=== PATIENT | male | born 1985 | race American Indian/Alaskan Native ===

== ENCOUNTER 2018-08-07 22:23 | Inpatient (IN) | payer BC, OTHER ==
[2018-08-07] MEDS ORDERED: Sodium Chloride 0.9% 1,000 ML IV ONE (22:32)
[2018-08-07] MEDS ORDERED: Ondansetron 4 MG/2 ML SDV IVPUSH ONE (22:32)
[2018-08-07] MEDS ORDERED: Ketorolac 30 MG/ML SDV IVPUSH ONE (22:33)
--- NOTE | 2018-08-07 22:45 | EDM.PDOC ---
ED HPI GENERAL MEDICAL PROBLEM - General Chief Complaint: Abdominal Pain Stated Complaint: ABD PAIN Time Seen by Provider: 08/07/18 22:43 - History of Present Illness INITIAL COMMENTS - FREE TEXT/NARRATIVE: HISTORY AND PHYSICAL: History of present illness: Patient is a 33-year-old white male history of diabetes presents with concern of right-sided abdominal flank pain started acutely this afternoon he has associated nausea no vomiting denies fever chills trauma or other concern. Review of systems: As per history of present illness and below otherwise all systems reviewed and negative. Past medical history: As per history of present illness and as reviewed below otherwise noncontributory. Surgical history: As per history of present illness and as reviewed below otherwise noncontributory. Social history: No reported history of drug or alcohol abuse. Family history: As per history of present illness and as reviewed below otherwise noncontributory. Physical exam: HEENT: Atraumatic, normocephalic, pupils reactive, negative for conjunctival pallor or scleral icterus, mucous membranes moist, throat clear, neck supple, nontender, trachea midline. Lungs: Clear to auscultation, breath sounds equal bilaterally, chest nontender. Heart: S1S2, regular, negative for clicks, rubs, or JVD. Abdomen: Soft, nondistended, mild right-sided tenderness to deep palpation no rebound no guarding. Negative for masses or hepatosplenomegaly. Negative for costovertebral tenderness. Pelvis: Stable nontender. Genitourinary: Deferred. Rectal: Deferred. Extremities: Atraumatic, negative for cords or calf pain. Neurovascular unremarkable. Neuro: Awake, alert, oriented. Cranial nerves II through XII unremarkable. Cerebellum unremarkable. Motor and sensory unremarkable throughout. Exam nonfocal. Diagnostics: CBC CMP UA lipase CT abdomen and pelvis Therapeutics: Saline 1 L bolus Toradol 30 mg IV Zofran 4 mg IV Impression: #1 right-sided abdominal pain #2 history of diabetes Definitive disposition and diagnosis as appropriate pending reevaluation and review of above. RLQ abdomen Pain Score (Numeric/FACES): 7 - Related Data Allergies Allergy/AdvReac Type Severity Reaction Status Date / Time No Known Allergies Allergy Verified 08/07/18 22:27 Home Meds: Home Meds Insulin Aspart [NovoLOG] 21 unit SUBCUT DAILY 08/07/18 [History] Past Medical History - Past Health History Medical/Surgical History: Denies Medical/Surgical History Endocrine/Metabolic History: Reports: Diabetes, Type I Social & Family History - Family History Family Medical History: Noncontributory - Tobacco Use Smoking Status *Q: Never Smoker - Recreational Drug Use Recreational Drug Use: No ED ROS GENERAL - Review of Systems Review Of Systems: ROS reveals no pertinent complaints other than HPI. ED EXAM, GENERAL - Physical Exam Exam: See Below (See dictation) Course - Vital Signs Last Recorded V/S: Last Vital Signs Temp 36.9 C 08/08/18 03:00 Pulse 85 08/08/18 00:11 Resp 26 H 08/08/18 07:00 BP 154/88 H 08/08/18 07:00 Pulse Ox 96 08/08/18 07:00 - Orders/Labs/Meds Orders: Medication Orders Enoxaparin Sodium (Lovenox) 40 mg SUBCUT Q24H ROLO Last Admin: 08/08/18 05:23 Dose: 40 mg Folic Acid (Folic Acid) 1 mg PO DAILY ROLO Hydromorphone HCl (Dilaudid) 0.5 mg IVPUSH Q2H PRN PRN Reason: Pain Insulin Human Regular 100 unit (/ Sodium Chloride) 100 mls @ 1.5 mls/hr IV TITRATE ROLO; Protocol Last Titration: 08/08/18 06:56 Dose: 2 unit/hr, 2 mls/hr Titration: 08/08/18 06:08 Dose: 2.5 unit/hr, 2.5 mls/hr Admin: 08/08/18 04:27 Dose: 1.5 unit/hr, 1.5 mls/hr Potassium Chloride/Dextrose/Sod Cl (D5 1/2 Ns W/ 20 Meq/L Kcl) 1,000 mls @ 150 mls/hr IV ASDIRECTED ROLO Last Admin: 08/08/18 05:00 Dose: 150 mls/hr Multivitamins/Minerals 10 ml/ (Sodium Chloride) 1,010 mls @ 250 mls/hr IV DAILY ROLO Magnesium Sulfate 2 gm/ Premix 50 mls @ 50 mls/hr IV ONETIME ONE Stop: 08/08/18 08:37 Potassium Chloride 20 meq/ (Premix) 50 mls @ 25 mls/hr IV ONETIME ONE Stop: 08/08/18 13:29 Thiamine HCl (Vitamin B-1) 100 mg PO DAILY ROLO Labs: Laboratory Tests 08/07/18 08/07/18 08/07/18 Range/Units 22:35 22:42 22:42 WBC 14.35 H (4.0-11.0) K/uL RBC 4.56 (4.50-5.90) M/uL Hgb 19.7 H (13.0-17.0) g/dL Hct 43.2 (38.0-50.0) % MCV 94.7 (80.0-98.0) fL MCH 43.2 H (27.0-32.0) pg MCHC 45.6 H (31.0-37.0) g/dL RDW Std Deviation 45.9 (28.0-62.0) fl RDW Coeff of Raymond 13 (11.0-15.0) % Plt Count 185 (150-400) K/uL MPV 10.80 (7.40-12.00) fL Add Manual Diff YES Neutrophils % (Manual) 75 (48.0-80.0) % Band Neutrophils % 2 % Lymphocytes % (Manual) 13 L (16.0-40.0) % Monocytes % (Manual) 10 (0.0-15.0) % Nucleated RBC % 0.0 /100WBC Absolute Seg Neuts 10.8 H (1.4-5.7) Band Neutrophils # 0.3 Lymphocytes # (Manual) 1.9 (0.6-2.4) Monocytes # (Manual) 1.4 H (0.0-0.8) Nucleated RBCs # 0 K/uL ABG pH (7.35-7.45) ABG pCO2 (35-45) mmHG ABG pO2 (75-100) mmHG ABG HCO3 (22-26) mEq/L ABG Total CO2 ABG Base Excess (-2.0-2.0) Sodium 131 L (136-148) mmol/L Potassium 3.6 (3.5-5.1) mmol/L Chloride 94 L (98-107) mmol/L Carbon Dioxide 10.0 L (21.0-32.0) mmol/L BUN 9 (7.0-18.0) mg/dL Creatinine < 0.2 L (0.8-1.3) mg/dL Est Cr Clr Drug Dosing 321.95 mL/min Estimated GFR (MDRD) > 60.0 ml/min Glucose 559 H* (74-106) mg/dL POC Glucose (60-110) mg/dL Calcium 6.7 L (8.5-10.1) mg/dL Total Bilirubin 3.2 H (0.2-1.0) mg/dL AST (15-37) IU/L ALT (14-63) IU/L Alkaline Phosphatase 84 (46-116) U/L Total Protein 7.8 (6.4-8.2) g/dL Albumin 3.8 (3.4-5.0) g/dL Globulin 4.0 (2.6-4.0) g/dL Albumin/Globulin Ratio 1.0 (0.9-1.6) Lipase 2520 H (73-393) U/L Urine Color YELLOW Urine Appearance HAZY Urine pH 5.5 (5.0-8.0) Ur Specific [place] >= 1.030 (1.001-1.035) Urine Protein 100 H (NEGATIVE) mg/dL Urine Glucose (UA) 500 H (NEGATIVE) mg/dL Urine Ketones >=80 (NEGATIVE) mg/dL Urine Occult Blood SMALL H (NEGATIVE) Urine Nitrite NEGATIVE (NEGATIVE) Urine Bilirubin SMALL H (NEGATIVE) Urine Urobilinogen 0.2 (<2.0) EU/dL Ur Leukocyte Esterase NEGATIVE (NEGATIVE) Urine RBC 0-2 (0-2/HPF) Urine WBC 0-1 (0-5/HPF) Ur Epithelial Cells RARE (NONE-FEW) Urine Bacteria FEW (NEGATIVE) Urine Mucus LIGHT (NONE-MOD) 08/08/18 08/08/18 Range/Units 01:36 01:43 WBC (4.0-11.0) K/uL RBC (4.50-5.90) M/uL Hgb (13.0-17.0) g/dL Hct (38.0-50.0) % MCV (80.0-98.0) fL MCH (27.0-32.0) pg MCHC (31.0-37.0) g/dL RDW Std Deviation (28.0-62.0) fl RDW Coeff of Raymond (11.0-15.0) % Plt Count (150-400) K/uL MPV (7.40-12.00) fL Add Manual Diff Neutrophils % (Manual) (48.0-80.0) % Band Neutrophils % % Lymphocytes % (Manual) (16.0-40.0) % Monocytes % (Manual) (0.0-15.0) % Nucleated RBC % /100WBC Absolute Seg Neuts (1.4-5.7) Band Neutrophils # Lymphocytes # (Manual) (0.6-2.4) Monocytes # (Manual) (0.0-0.8) Nucleated RBCs # K/uL ABG pH 7.124 L* (7.35-7.45) ABG pCO2 15 L (35-45) mmHG ABG pO2 121 H (75-100) mmHG ABG HCO3 5 L (22-26) mEq/L ABG Total CO2 ABG Base Excess (-2.0-2.0) Sodium (136-148) mmol/L Potassium (3.5-5.1) mmol/L Chloride (98-107) mmol/L Carbon Dioxide (21.0-32.0) mmol/L BUN (7.0-18.0) mg/dL Creatinine (0.8-1.3) mg/dL Est Cr Clr Drug Dosing mL/min Estimated GFR (MDRD) ml/min Glucose (74-106) mg/dL POC Glucose 205 H (60-110) mg/dL Calcium (8.5-10.1) mg/dL Total Bilirubin (0.2-1.0) mg/dL AST (15-37) IU/L ALT (14-63) IU/L Alkaline Phosphatase (46-116) U/L Total Protein (6.4-8.2) g/dL Albumin (3.4-5.0) g/dL Globulin (2.6-4.0) g/dL Albumin/Globulin Ratio (0.9-1.6) Lipase (73-393) U/L Urine Color Urine Appearance Urine pH (5.0-8.0) Ur Specific [place] (1.001-1.035) Urine Protein (NEGATIVE) mg/dL Urine Glucose (UA) (NEGATIVE) mg/dL Urine Ketones (NEGATIVE) mg/dL Urine Occult Blood (NEGATIVE) Urine Nitrite (NEGATIVE) Urine Bilirubin (NEGATIVE) Urine Urobilinogen (<2.0) EU/dL Ur Leukocyte Esterase (NEGATIVE) Urine RBC (0-2/HPF) Urine WBC (0-5/HPF) Ur Epithelial Cells (NONE-FEW) Urine Bacteria (NEGATIVE) Urine Mucus (NONE-MOD) Meds: Medications Generic Name Dose Route Start Last Admin Trade Name Bridget PRN Reason Stop Dose Admin Enoxaparin Sodium 40 mg 08/08/18 05:00 08/08/18 05:23 Lovenox SUBCUT 40 mg Q24H ROLO Administration Folic Acid 1 mg 08/08/18 09:00 Folic Acid PO DAILY ROLO Hydromorphone HCl 0.5 mg 08/08/18 07:38 Dilaudid IVPUSH Q2H PRN Pain Insulin Human Regular 100 unit 100 mls @ 1.5 mls/hr 08/08/18 04:15 08/08/18 06:56 / Sodium Chloride IV 2 unit/hr TITRATE ROLO 2 mls/hr Titration Protocol 1.5 UNIT/HR Potassium Chloride/Dextrose/Sod Cl 1,000 mls @ 150 mls/hr 08/08/18 04:15 05:00 D5 1/2 Ns W/ 20 Meq/L Kcl IV 150 mls/hr ASDIRECTED ROLO Administration Multivitamins/Minerals 10 ml/ 1,010 mls @ 250 mls/hr 08/08/18 09:00 Sodium Chloride IV DAILY ROLO Magnesium Sulfate 2 gm/ Premix 50 mls @ 50 mls/hr 08/08/18 07:38 IV 08/08/18 08:37 ONETIME ONE Potassium Chloride 20 meq/ 50 mls @ 25 mls/hr 08/08/18 11:30 Premix IV 08/08/18 13:29 ONETIME ONE Thiamine HCl 100 mg 08/08/18 09:00 Vitamin B-1 PO DAILY ROLO Discontinued Medications Generic Name Dose Route Start Last Admin Trade Name Bridget PRN Reason Stop Dose Admin Hydromorphone HCl 1 mg 08/08/18 00:48 08/08/18 00:58 Dilaudid IVPUSH 08/08/18 00:49 1 mg ONETIME ONE Administration Hydromorphone HCl 0.5 mg 08/08/18 04:16 08/08/18 04:47 Dilaudid IVPUSH 0.5 mg Q4H PRN Administration Pain Sodium Chloride 1,000 mls @ 999 mls/hr 08/07/18 22:32 08/07/18 22:47 Normal Saline IV 08/07/18 23:32 999 mls/hr .Bolus ONE Administration Sodium Chloride 1,000 mls @ 999 mls/hr 08/08/18 01:03 08/08/18 01:05 Normal Saline IV 08/08/18 02:03 999 mls/hr .Bolus ONE Administration Insulin Human Regular 100 unit 100 mls @ 7 mls/hr 08/08/18 02:15 08/08/18 03: 58 / Sodium Chloride IV 1.5 unit/hr TITRATE ROLO 1.5 mls/hr Titration Protocol 7 UNIT/HR Thiamine HCl 100 mg/ Sodium 101 mls @ 202 mls/hr 08/08/18 04:18 08/08/18 04: 57 Chloride IV 08/08/18 04:19 202 mls/hr ONETIME ONE Administration Sodium Chloride 1,000 mls @ 125 mls/hr 08/08/18 03:05 08/08/18 03:08 Normal Saline IV 125 mls/hr ASDIRECTED ROLO Administration Potassium Phosphate 30 mmole/ 510 mls @ 127.5 mls/hr 08/08/18 07:39 Sodium Chloride IV 08/08/18 07:40 NOW ONE Insulin Human Regular 10 unit 08/08/18 00:49 08/08/18 00:55 Novolin R SUBCUT 08/08/18 00:50 10 unit NOW STA Administration Protocol Insulin Human Regular 10 unit 08/08/18 01:06 08/08/18 01:10 Novolin R IVPUSH 08/08/18 01:07 10 unit ONETIME ONE Administration Protocol Ketorolac Tromethamine 30 mg 08/07/18 22:33 08/07/18 22:48 Toradol IVPUSH 08/07/18 22:34 30 mg ONETIME ONE Administration Multivitamins/Minerals 10 ml 08/08/18 09:00 Infuvite Adult IV DAILY ROLO Ondansetron HCl 4 mg 08/07/18 22:32 08/07/18 22:47 Zofran IVPUSH 08/07/18 22:33 4 mg ONETIME ONE Administration Departure - Departure Time of Disposition: 07:49 Disposition: Admitted As Inpatient 68 Condition: Good Clinical Impression: Abdominal pain Pancreatitis Qualifiers: Chronicity: acute Pancreatitis type: unspecified pancreatitis type Acute pancreatitis complication: no infection or necrosis Qualified Code(s): K85.90 - Acute pancreatitis without necrosis or infection, unspecified Diabetic ketoacidosis Qualifiers: Diabetes mellitus type: type 1 Diabetes mellitus complication detail: without coma Qualified Code(s): E10.10 - Type 1 diabetes mellitus with ketoacidosis without coma - Discharge Information
--- NOTE | 2018-08-07 23:27 | CT ---
HISTORY: Right lower quadrant abdominal pain. TECHNIQUE: Noncontrast CT abdomen and pelvis. COMPARISON: No prior. FINDINGS: Fatty infiltration of the liver with areas of sparing. Gallbladder does not appear overly distended. The spleen and adrenal glands are normal. There is peripancreatic inflammatory change associated with the head and uncinate process of pancreas likely indicating changes of pancreatitis. No well-defined pseudocyst. No hydronephrosis. No obstructive urinary calculus. Urinary bladder is nondistended. - No small bowel obstruction. No appendicitis. No diverticulitis. Mild atherosclerotic changes of the abdominal aorta without aneurysm. No technically enlarged lymph nodes. - No acute bony abnormality. - Minor atelectasis within the lung bases. IMPRESSION: 1. Peripancreatic inflammatory changes likely indicating changes of pancreatitis. Correlation could be made with pancreatic enzymes. 2. Fatty infiltration of the liver. 3. No bowel obstruction, appendicitis or diverticulitis. Dictated by Carson Telles MD @ 08/07/2018 11:25:20 PM Please note that all CT scans at this facility use dose modulation, iterative reconstruction, and/or weight-based dosing when appropriate to reduce radiation dose to as low as reasonably achievable. Dictated by: Carson Telles MD @ 08/07/2018 23:25:30 (Electronically Signed)
[2018-08-08 00:01] LABS: CHLORIDE,CL 94 mmol/L (98-107)
[2018-08-08 00:46] LABS: SODIUM,NA 131 mmol/L (136-148)
[2018-08-08] MEDS ORDERED: HYDROmorphone 1 MG/ML Syringe IVPUSH ONE (00:48)
[2018-08-08] MEDS ORDERED: Insulin Regular, Human 100 Units/ML 10 ML Vial SUBCUT STA (00:49)
[2018-08-08] MEDS ORDERED: Sodium Chloride 0.9% 1,000 ML IV ONE ×2 (01:03→13:15)
[2018-08-08] MEDS ORDERED: Insulin Regular, Human 100 Units/ML 10 ML Vial IVPUSH ONE (01:06)
[2018-08-08] MEDS ORDERED: Sodium Chloride 0.9% 1,000 ML IV SCH (03:05)
[2018-08-08] MEDS ORDERED: D5 1/2 NS w/ 20 mEq/L KCl 1,000 ML IV SCH (04:15)
[2018-08-08] MEDS ORDERED: HYDROmorphone 2 MG/ML Syringe IVPUSH PRN (04:16)
[2018-08-08] MEDS ORDERED: Thiamine 100 MG in Sodium Chloride 0.9% 100 ML IV ONE (04:18)
--- NOTE | 2018-08-08 04:52 | PCM.HP ---
H&P History of Present Illness - General Date of Service: 08/08/18 Admit Problem/Dx: Admission Diagnosis/Problem Admission Diagnosis/Problem Pancreatitis Source of Information: Patient History Limitations: Reports: No Limitations - History of Present Illness Initial Comments - Free Text/Narative: The patient is a 33-year-old gentleman who presented to the emergency department out of concern with right-sided abdominal and flank pain which started earlier before visit. Patient is an insulin-dependent diabetic and he was diagnosed 3 years ago. The patient has not previously had any problems with diabetic ketoacidosis. The patient has described his pain is located in the middle of his abdomen and radiating to his back. He describes it as sharp. The patient has described nausea without vomiting. The patient has had no specific aggravating or relieving factors. Patient says that he neglected to take his insulin for the past 3 days. Onset of Symptoms: Reports: Sudden Duration of Symptoms: Reports: Hour(s):, Getting Worse Location: Reports: Abdomen Quality: Reports: Ache, Stabbing Severity: Moderate Improves with: Reports: Medication, Rest Worsens with: Reports: None Associated Symptoms: Reports: Loss of Appetite, Nausea/Vomiting RLQ abdomen Pain Score (Numeric/FACES): 2 - Related Data Allergies/Adverse Reactions: Allergies Allergy/AdvReac Type Severity Reaction Status Date / Time No Known Allergies Allergy Verified 08/07/18 22:27 Home Medications: Home Meds Insulin Aspart [NovoLOG] 21 unit SUBCUT DAILY 08/07/18 [History] Past Medical History - Past Health History Medical/Surgical History: Denies Medical/Surgical History HEENT History: Reports: None Cardiovascular History: Reports: None Respiratory History: Reports: None Gastrointestinal History: Reports: None Genitourinary History: Reports: None Musculoskeletal History: Reports: None Neurological History: Reports: None Psychiatric History: Reports: None Endocrine/Metabolic History: Reports: Diabetes, Type I Hematologic History: Reports: None Immunologic History: Reports: None Oncologic (Cancer) History: Reports: None Dermatologic History: Reports: None - Infectious Disease History Infectious Disease History: Reports: None Social & Family History - Family History Family Medical History: Noncontributory - Tobacco Use Smoking Status *Q: Former Smoker Years of Tobacco use: 12 Packs/Tins Daily: 1 Used Tobacco, but Quit: Yes Month/Year Tobacco Last Used: 2014 Second Hand Smoke Exposure: Yes - Alcohol Use Days Per Week of Alcohol Use: 7 Number of Drinks Per Day: 6 Total Drinks Per Week: 42 Date of Last Drink: 08/06/18 - Recreational Drug Use Recreational Drug Use: No - Living Situation & Occupation Occupation: Employed H&P Review of Systems - Review of Systems: Review Of Systems: See Below General: Reports: Decreased Appetite HEENT: Reports: No Symptoms Pulmonary: Reports: No Symptoms Cardiovascular: Reports: No Symptoms Gastrointestinal: Reports: Abdominal Pain, Constipation, Nausea. Denies: Vomiting Genitourinary: Reports: No Symptoms Musculoskeletal: Reports: No Symptoms Skin: Reports: No Symptoms Psychiatric: Reports: No Symptoms Neurological: Reports: No Symptoms Hematologic/Lymphatic: Reports: No Symptoms Immunologic: Reports: No Symptoms Exam - Exam Exam: See Below - Vital Signs Vital Signs: Last Vital Signs Temp 36.9 C 08/08/18 03:00 Pulse 85 08/08/18 00:11 Resp 24 H 08/08/18 04:00 BP 143/78 H 08/08/18 04:00 Pulse Ox 95 08/08/18 04:00 Weight: 78.018 kg - Exam Quality Assessment: No: Supplemental Oxygen General: Alert, Oriented, Cooperative, Mild Distress HEENT: Conjunctiva Clear, EACs Clear, EOMI, Hearing Intact, Nares Patent, Pupils Equal, PERRLA. No: Mucosa Moist & [place] (Dry) Neck: Supple, Trachea Midline. No: Thyromegaly Lungs: Clear to Auscultation, Normal Respiratory Effort Cardiovascular: Regular Rhythm, Normal S1, Normal S2, Tachycardia (112 on monitor) GI/Abdominal Exam: Normal Bowel Sounds, Soft, No Distention, No Mass, Tender ( Supraumbilical area). No: Guarding, Rigid, Rebound Back Exam: Normal Inspection, Full Range of Motion Extremities: Normal Inspection, No Pedal Edema Skin: Warm, Dry, Intact Neurological: Cranial Nerves Intact Neuro Extensive - Mental Status: Alert, Oriented x3 Psychiatric: Alert, Normal Affect, Normal Mood - Patient Data Lab Results Last 24 hrs: Laboratory Results - last 24 hr 08/07/18 08/07/18 08/07/18 Range/Units 22:35 22:42 22:42 WBC 14.35 H (4.0-11.0) K/uL RBC 4.56 (4.50-5.90) M/uL Hgb 19.7 H (13.0-17.0) g/dL Hct 43.2 (38.0-50.0) % MCV 94.7 (80.0-98.0) fL MCH 43.2 H (27.0-32.0) pg MCHC 45.6 H (31.0-37.0) g/dL RDW Std Deviation 45.9 (28.0-62.0) fl RDW Coeff of Raymond 13 (11.0-15.0) % Plt Count 185 (150-400) K/uL MPV 10.80 (7.40-12.00) fL Add Manual Diff YES Neutrophils % (Manual) 75 (48.0-80.0) % Band Neutrophils % 2 % Lymphocytes % (Manual) 13 L (16.0-40.0) % Monocytes % (Manual) 10 (0.0-15.0) % Nucleated RBC % 0.0 /100WBC Absolute Seg Neuts 10.8 H (1.4-5.7) Band Neutrophils # 0.3 Lymphocytes # (Manual) 1.9 (0.6-2.4) Monocytes # (Manual) 1.4 H (0.0-0.8) Nucleated RBCs # 0 K/uL ABG pH (7.35-7.45) ABG pCO2 (35-45) mmHG ABG pO2 (75-100) mmHG ABG HCO3 (22-26) mEq/L ABG Total CO2 ABG Base Excess (-2.0-2.0) Sodium 131 L (136-148) mmol/L Potassium 3.6 (3.5-5.1) mmol/L Chloride 94 L (98-107) mmol/L Carbon Dioxide 10.0 L (21.0-32.0) mmol/L BUN 9 (7.0-18.0) mg/dL Creatinine < 0.2 L (0.8-1.3) mg/dL Est Cr Clr Drug Dosing 321.95 mL/min Estimated GFR (MDRD) > 60.0 ml/min Glucose 559 H* (74-106) mg/dL POC Glucose (60-110) mg/dL Calcium 6.7 L (8.5-10.1) mg/dL Total Bilirubin 3.2 H (0.2-1.0) mg/dL AST (15-37) IU/L ALT (14-63) IU/L Alkaline Phosphatase 84 (46-116) U/L Total Protein 7.8 (6.4-8.2) g/dL Albumin 3.8 (3.4-5.0) g/dL Globulin 4.0 (2.6-4.0) g/dL Albumin/Globulin Ratio 1.0 (0.9-1.6) Lipase 2520 H (73-393) U/L Urine Color YELLOW Urine Appearance HAZY Urine pH 5.5 (5.0-8.0) Ur Specific [place] >= 1.030 (1.001-1.035) Urine Protein 100 H (NEGATIVE) mg/dL Urine Glucose (UA) 500 H (NEGATIVE) mg/dL Urine Ketones >=80 (NEGATIVE) mg/dL Urine Occult Blood SMALL H (NEGATIVE) Urine Nitrite NEGATIVE (NEGATIVE) Urine Bilirubin SMALL H (NEGATIVE) Urine Urobilinogen 0.2 (<2.0) EU/dL Ur Leukocyte Esterase NEGATIVE (NEGATIVE) Urine RBC 0-2 (0-2/HPF) Urine WBC 0-1 (0-5/HPF) Ur Epithelial Cells RARE (NONE-FEW) Urine Bacteria FEW (NEGATIVE) Urine Mucus LIGHT (NONE-MOD) 08/08/18 08/08/18 08/08/18 Range/Units 01:36 02:58 03:58 WBC (4.0-11.0) K/uL RBC (4.50-5.90) M/uL Hgb (13.0-17.0) g/dL Hct (38.0-50.0) % MCV (80.0-98.0) fL MCH (27.0-32.0) pg MCHC (31.0-37.0) g/dL RDW Std Deviation (28.0-62.0) fl RDW Coeff of Raymond (11.0-15.0) % Plt Count (150-400) K/uL MPV (7.40-12.00) fL Add Manual Diff Neutrophils % (Manual) (48.0-80.0) % Band Neutrophils % % Lymphocytes % (Manual) (16.0-40.0) % Monocytes % (Manual) (0.0-15.0) % Nucleated RBC % /100WBC Absolute Seg Neuts (1.4-5.7) Band Neutrophils # Lymphocytes # (Manual) (0.6-2.4) Monocytes # (Manual) (0.0-0.8) Nucleated RBCs # K/uL ABG pH 7.124 L* (7.35-7.45) ABG pCO2 15 L (35-45) mmHG ABG pO2 121 H (75-100) mmHG ABG HCO3 5 L (22-26) mEq/L ABG Total CO2 ABG Base Excess (-2.0-2.0) Sodium (136-148) mmol/L Potassium (3.5-5.1) mmol/L Chloride (98-107) mmol/L Carbon Dioxide (21.0-32.0) mmol/L BUN (7.0-18.0) mg/dL Creatinine (0.8-1.3) mg/dL Est Cr Clr Drug Dosing mL/min Estimated GFR (MDRD) ml/min Glucose (74-106) mg/dL POC Glucose 197 H 173 H (60-110) mg/dL Calcium (8.5-10.1) mg/dL Total Bilirubin (0.2-1.0) mg/dL AST (15-37) IU/L ALT (14-63) IU/L Alkaline Phosphatase (46-116) U/L Total Protein (6.4-8.2) g/dL Albumin (3.4-5.0) g/dL Globulin (2.6-4.0) g/dL Albumin/Globulin Ratio (0.9-1.6) Lipase (73-393) U/L Urine Color Urine Appearance Urine pH (5.0-8.0) Ur Specific [place] (1.001-1.035) Urine Protein (NEGATIVE) mg/dL Urine Glucose (UA) (NEGATIVE) mg/dL Urine Ketones (NEGATIVE) mg/dL Urine Occult Blood (NEGATIVE) Urine Nitrite (NEGATIVE) Urine Bilirubin (NEGATIVE) Urine Urobilinogen (<2.0) EU/dL Ur Leukocyte Esterase (NEGATIVE) Urine RBC (0-2/HPF) Urine WBC (0-5/HPF) Ur Epithelial Cells (NONE-FEW) Urine Bacteria (NEGATIVE) Urine Mucus (NONE-MOD) Result Diagrams: 08/07/18 22:42 08/07/18 22:42 - Problem List (1) Pancreatitis SNOMED Code(s): 75817065 ICD Code: K85.90 - ACUTE PANCREATITIS WITHOUT NECROSIS OR INFECTION, UNSP Status: Acute Priority: High Current Visit: Yes Qualifiers: Chronicity: acute Pancreatitis type: unspecified pancreatitis type Acute pancreatitis complication: no infection or necrosis Qualified Code(s): K85.90 - Acute pancreatitis without necrosis or infection, unspecified (2) Metabolic acidosis SNOMED Code(s): 97414247 ICD Code: E87.2 - ACIDOSIS Status: Acute Priority: High Current Visit: Yes (3) Dehydration SNOMED Code(s): 15161634 ICD Code: E86.0 - DEHYDRATION Status: Acute Priority: High Current Visit: Yes (4) Type 2 diabetes mellitus SNOMED Code(s): 00489807 ICD Code: E11.9 - TYPE 2 DIABETES MELLITUS WITHOUT COMPLICATIONS Status: Chronic Priority: High Current Visit: Yes Qualifiers: Diabetes mellitus halfway insulin use: with remote computer terminal operator use Diabetes mellitus complication status: without complication Qualified Code(s): E11.9 - Type 2 diabetes mellitus without complications; Z79.4 - manager terminal (current) use of insulin (5) Diabetic ketoacidosis SNOMED Code(s): 290515411, 556416238 ICD Code: E13.10 - OTH DIABETES MELLITUS WITH KETOACIDOSIS WITHOUT COMA Status: Acute Priority: High Current Visit: Yes Qualifiers: Diabetes mellitus type: type 1 Diabetes mellitus complication detail: without coma Qualified Code(s): E10.10 - Type 1 diabetes mellitus with ketoacidosis without coma Problem List Initiated/Reviewed/Updated: Yes Orders Last 24hrs: Active Orders 24 hr Category Date Time Status Admission Status [Patient Status] [ADT] Stat ADT 08/08/18 02:08 Active CIWAA Assessment [RC] Q4H Care 08/08/18 04:17 Active AMYLASE [CHEM] Stat Lab 08/08/18 04:20 Ordered BASIC METABOLIC PANEL,BMP [CHEM] Stat Lab 08/08/18 04:20 Ordered CULTURE BLOOD [BC] Stat Lab 08/08/18 04:23 Ordered CULTURE BLOOD [BC] Stat Lab 08/08/18 04:23 Ordered CULTURE URINE [RM] Routine Lab 08/08/18 04:23 Ordered LIPASE [CHEM] Routine Lab 08/08/18 04:20 Ordered MAGNESIUM [CHEM] Stat Lab 08/08/18 04:20 Ordered PHOSPHORUS [CHEM] Stat Lab 08/08/18 04:20 Ordered D5 1/2 NS w/ 20 mEq/L KCl 1,000 ml Med 08/08/18 04:15 Active IV ASDIRECTED Folic Acid Med 08/08/18 09:00 Active 1 mg PO DAILY HYDROmorphone [Dilaudid] Med 08/08/18 04:16 Active 0.5 mg IVPUSH Q4H PRN Insulin Regular, Human [NovoLIN R] 100 unit Med 08/08/18 04:15 Active Sodium Chloride 0.9% [Normal Saline] 99 ml IV TITRATE MVI, Adult with Vitamin K [Infuvite Adult] 10 ml Med 08/08/18 09:00 Active Sodium Chloride 0.9% [Normal Saline] 1,000 ml IV DAILY Sodium Chloride 0.9% [Normal Saline] 1,000 ml Med 08/08/18 03:05 Active IV ASDIRECTED Thiamine [Vitamin B-1] Med 08/08/18 09:00 Active 100 mg PO DAILY Blood Culture x2 Reflex Set [OM.PC] Stat Oth 08/08/18 04:23 Ordered Medication Orders Folic Acid (Folic Acid) 1 mg PO DAILY ROLO Hydromorphone HCl (Dilaudid) 0.5 mg IVPUSH Q4H PRN PRN Reason: Pain Last Admin: 08/08/18 04:47 Dose: 0.5 mg Insulin Human Regular 100 unit (/ Sodium Chloride) 100 mls @ 1.5 mls/hr IV TITRATE ROLO; Protocol Last Admin: 08/08/18 04:27 Dose: 1.5 unit/hr, 1.5 mls/hr Potassium Chloride/Dextrose/Sod Cl (D5 1/2 Ns W/ 20 Meq/L Kcl) 1,000 mls @ 150 mls/hr IV ASDIRECTED ROLO Multivitamins/Minerals 10 ml/ (Sodium Chloride) 1,010 mls @ 250 mls/hr IV DAILY ROLO Sodium Chloride (Normal Saline) 1,000 mls @ 125 mls/hr IV ASDIRECTED ROLO Last Admin: 08/08/18 03:08 Dose: 125 mls/hr Thiamine HCl (Vitamin B-1) 100 mg PO DAILY ROLO Assessment/Plan Comment:: The patient is a 33-year-old gentleman with a history of diabetes mellitus type 1 and he had been unable to take his insulin for the past 3 days. The patient's primary diagnosis of pancreatitis however he was noted to have diabetic ketoacidosis well. The patient will be aggressively fluid resuscitated. He has been admitted to intensive care unit. Patient will be placed on insulin drip as necessary with his blood sugar management and acidosis. Patient will be kept nothing by mouth for now. He will also have pain control with the use of narcotic medications. We'll follow patient with eICU. The patient will also be given DVT prophylaxis with the use of 40 mg of Lovenox subcutaneous daily. Patient's diet will be advanced to an appropriate diabetic diet as soon as possible. The patient is also to have follow-up laboratory testing consisting of basic metabolic panel every 4 hours. A hemoglobin A1c is also been ordered. The patient should be appropriate for discharge in 1-2 days depending upon his improvement.
[2018-08-08] MEDS ORDERED: Enoxaparin 40 MG/0.4 ML Syringe SUBCUT SCH (05:00)
[2018-08-08 06:27] LABS: CHLORIDE,CL 98 mmol/L (98-107)
[2018-08-08 06:55] LABS: SODIUM,NA 131 mmol/L (136-148)
[2018-08-08] MEDS ORDERED: Magnesium Sulfate/Water 2 GM in Premix Bag 1 BAG IV ONE ×2 (07:38→11:30)
[2018-08-08] MEDS ORDERED: Potassium Phosphates 30 MMOLE in Sodium Chloride 0.9% 500 ML IV ONE ×3 (07:39→08:15)
[2018-08-08] MEDS: HYDROmorphone 1 MG/ML Syringe IVPUSH PRN ×2 (07:58→09:52)
[2018-08-08 08:42] LABS: CHLORIDE,CL 90 mmol/L (98-107)
[2018-08-08] MEDS ORDERED: DEXTROSE IV SCH ×2 (09:00)
[2018-08-08] MEDS ORDERED: VITAMIN K IV SCH ×2 (09:00)
[2018-08-08] MEDS ORDERED: Folic Acid 1 MG Tab PO SCH (09:00)
[2018-08-08] MEDS ORDERED: MVI, Adult with Vitamin K 10 ML SDV IV SCH (09:00)
[2018-08-08] MEDS ORDERED: MVI IV SCH ×2 (09:00)
[2018-08-08] MEDS ORDERED: MVI, Adult with Vitamin K 10 ML in Sodium Chloride 0.9% 1,000 ML IV SCH ×2 (09:00)
[2018-08-08] MEDS ORDERED: Thiamine 100 MG Tab PO SCH (09:00)
[2018-08-08] MEDS ORDERED: WATER IV SCH ×2 (09:00)
[2018-08-08 09:31] LABS: SODIUM,NA 121 mmol/L (136-148)
--- NOTE | 2018-08-08 10:36 | US ---
INDICATION: Pancreatitis. TECHNIQUE: Abdominal limited ultrasound. COMPARISON: CT abdomen pelvis 08/07/2018. FINDINGS: Director Cardiac reported that the exam was technically difficult due to patient not being able to hold there breath. Tail of the pancreas was completely obscured by bowel gas. Pancreas otherwise segmentally visualized and grossly normal by ultrasound. The inflammatory fluid and stranding about the duodenum and pancreas on yesterday`s CT could not be visualized by ultrasound which often the case in CT is more sensitive for this inflammatory disease process. Mild to moderate diffuse fatty infiltration of the liver unchanged with areas of focal fatty sparing in the liver especially along the gallbladder. Gallbladder is moderately distended and its wall was normal. No gallstones. Common bile duct proximally was [id number] dilated at approximately 1 cm. The biliary dilatation was not appreciated on yesterday`s CT. Liver measures 17-18 cm in craniocaudad dimension. Right kidney measures 13.6 cm and is negative for hydronephrosis. Remainder negative. IMPRESSION: 1. New mild to moderate dilatation of the common bile duct has developed since yesterday with the common bile duct measuring approximately 1 cm. 2. Gallbladder is normal without sonographic evidence of cholecystitis or cholelithiasis. 3. Moderate diffuse fatty infiltration of the liver with areas of focal fatty sparing adjacent to gallbladder. 4. Portions of the pancreas including the entire pancreatic tail was obscured by bowel gas. Other findings as above. Dictated by Aston Salcido MD @ Aug 08 2018 10:30AM Signed by Dr. Aston Salcido @ Aug 08 2018 10:35AM
[2018-08-08] MEDS ORDERED: HYDROmorphone 1 MG/ML Syringe IVPUSH PRN (11:01)
[2018-08-08] MEDS ORDERED: Potassium Chloride Riders 20 MEQ in Premix Bag 1 BAG IV ONE ×2 (11:30→12:30)
[2018-08-08] MEDS ORDERED: LORazepam 2 MG/ML SDV IVPUSH PRN (12:24)
[2018-08-08 13:25] LABS: CHLORIDE,CL 98 mmol/L (98-107); SODIUM,NA 128 mmol/L (136-148)
[2018-08-08] MEDS ORDERED: Pantoprazole 80 MG in Sodium Chloride 0.9% 20 ML IV STA (13:53)
--- NOTE | 2018-08-08 14:26 | PCM.DCSUM1 ---
Discharge Summary - Hospital Course HPI Initial Comments: Admitted secondary to severe pancreatitis and diabetic ketoacidosis. Diagnosis: Stroke: No - Discharge Data Discharge Date: 08/08/18 Discharge Disposition: DC/Tfer to Acute Hospital 02 Condition: Fair - Discharge Diagnosis/Problem(s) (1) Pancreatitis SNOMED Code(s): 95869923 ICD Code: K85.90 - ACUTE PANCREATITIS WITHOUT NECROSIS OR INFECTION, UNSP Status: Acute Priority: High Current Visit: Yes Qualifiers: Chronicity: acute Pancreatitis type: unspecified pancreatitis type Acute pancreatitis complication: no infection or necrosis Qualified Code(s): K85.90 - Acute pancreatitis without necrosis or infection, unspecified (2) Metabolic acidosis SNOMED Code(s): 28199208 ICD Code: E87.2 - ACIDOSIS Status: Acute Priority: High Current Visit: Yes (3) Dehydration SNOMED Code(s): 35616700 ICD Code: E86.0 - DEHYDRATION Status: Acute Priority: High Current Visit: Yes (4) Type 2 diabetes mellitus SNOMED Code(s): 96698209 ICD Code: E11.9 - TYPE 2 DIABETES MELLITUS WITHOUT COMPLICATIONS Status: Chronic Priority: High Current Visit: Yes Qualifiers: Diabetes mellitus watermelon harvesting supervisor insulin use: with watermelon harvesting supervisor use Diabetes mellitus complication status: without complication Qualified Code(s): E11.9 - Type 2 diabetes mellitus without complications; Z79.4 - technician terminal and repeater (current) use of insulin (5) Diabetic ketoacidosis SNOMED Code(s): 765695098, 205942107 ICD Code: E13.10 - OTH DIABETES MELLITUS WITH KETOACIDOSIS WITHOUT COMA Status: Acute Priority: High Current Visit: Yes Qualifiers: Diabetes mellitus type: type 1 Diabetes mellitus complication detail: without coma Qualified Code(s): E10.10 - Type 1 diabetes mellitus with ketoacidosis without coma - Patient Summary/Data Hospital Course: The patient is a 33-year-old gentleman who presented to the emergency department out of concern with right-sided abdominal and flank pain which started earlier before visit. Patient is an insulin-dependent diabetic and he was diagnosed 3 years ago. The patient has not previously had any problems with diabetic ketoacidosis. The patient has described his pain is located in the middle of his abdomen and radiating to his back. He describes it as sharp. The patient has described nausea without vomiting. Physician was called bedside of patient in ICU after 1 episode of coffee-ground emesis. The patient's vital signs had shown pulse of 144 his blood pressure was 150/90 mmHg and his respirations were 28/m. His oxygen saturations were 96% on room air. EICU had recommended to initiate transfer to tertiary care center. The patient had a CT scan of the abdomen and pelvis which was obtained late on August 07, 2018 which showed peripancreatic stranding consistent with pancreatitis. There was also no evidence of biliary obstruction. An ultrasound of the right upper quadrant was obtained and was noted that the patient had new mild to moderate dilatation of the common bile duct since CT scan. His common bile duct was dilated at 1 cm. The patient's amylase was at 1227 and his lipase had increased to 7252. He was also noted to have a bicarbonate of 8 on basic metabolic panel. The patient was also kept on CIWAA protocol with Ativan as he had admitted to heavy daily alcohol use. The patient had been aggressively fluid resuscitated throughout the short course of hospitalization. Several of the samples were unable to be processed as he was noted to have severe hyperlipidemia. The patient's lipid profile is pending but if overly elevated this may necessitate dialysis. The patient has been recommended to fly via helicopter to [facility] in [place] and apparently [employer] as ordered their own flight team from [place] to here. The patient will be kept nothing by mouth. The patient also had been given 80 mg of Protonix IV [address] Flynn of [facility] has accepted. - Patient Instructions Diet: NPO - Discharge Plan *PRESCRIPTION DRUG MONITORING PROGRAM REVIEWED*: No *COPY OF PRESCRIPTION DRUG MONITORING REPORT IN PATIENT MANOHAR: No Home Medications: Home Meds Insulin Aspart [NovoLOG] 21 unit SUBCUT DAILY 08/07/18 [History] Oxygen Therapy Mode: Room Air Forms: ED Department Discharge - Discharge Summary/Plan Comment DC Time >30 min.: Yes - General Info Date of Service: 08/08/18 Admission Dx/Problem (Free Text: Admission Diagnosis/Problem Admission Diagnosis/Problem Pancreatitis Subjective Update: Coffee-ground emesis Functional Status: Reports: Pain Controlled - Review of Systems General: Reports: No Symptoms HEENT: Reports: No Symptoms Pulmonary: Reports: No Symptoms Cardiovascular: Reports: No Symptoms Gastrointestinal: Reports: Abdominal Pain, Vomiting Genitourinary: Reports: No Symptoms Musculoskeletal: Reports: No Symptoms Skin: Reports: No Symptoms Neurological: Reports: No Symptoms Psychiatric: Reports: No Symptoms - Patient Data Vitals - Most Recent: Last Vital Signs Temp 36.3 C 08/08/18 12:00 Pulse 85 08/08/18 00:11 Resp 28 H 08/08/18 13:00 BP 150/90 H 08/08/18 13:00 Pulse Ox 96 08/08/18 13:00 Weight - Most Recent: 78.018 kg I&O - Last 24 hours: Intake & Output 08/07/18 08/08/18 08/08/18 22:59 06:59 14:59 Intake Total 423 Output Total 1000 1500 Balance -577 -1500 Lab Results - Last 24 hrs: Laboratory Results - last 24 hr 08/07/18 08/07/18 08/07/18 Range/Units 22:35 22:42 22:42 WBC 14.35 H (4.0-11.0) K/uL RBC 4.56 (4.50-5.90) M/uL Hgb 19.7 H (13.0-17.0) g/dL Hct 43.2 (38.0-50.0) % MCV 94.7 (80.0-98.0) fL MCH 43.2 H (27.0-32.0) pg MCHC 45.6 H (31.0-37.0) g/dL RDW Std Deviation 45.9 (28.0-62.0) fl RDW Coeff of Raymond 13 (11.0-15.0) % Plt Count 185 (150-400) K/uL MPV 10.80 (7.40-12.00) fL Add Manual Diff YES Neutrophils % (Manual) 75 (48.0-80.0) % Band Neutrophils % 2 % Lymphocytes % (Manual) 13 L (16.0-40.0) % Monocytes % (Manual) 10 (0.0-15.0) % Nucleated RBC % 0.0 /100WBC Absolute Seg Neuts 10.8 H (1.4-5.7) Band Neutrophils # 0.3 Lymphocytes # (Manual) 1.9 (0.6-2.4) Monocytes # (Manual) 1.4 H (0.0-0.8) Nucleated RBCs # 0 K/uL ABG pH (7.35-7.45) ABG pCO2 (35-45) mmHG ABG pO2 (75-100) mmHG ABG HCO3 (22-26) mEq/L ABG Total CO2 ABG Base Excess (-2.0-2.0) Sodium 131 L (136-148) mmol/L Potassium 3.6 (3.5-5.1) mmol/L Chloride 94 L (98-107) mmol/L Carbon Dioxide 10.0 L (21.0-32.0) mmol/L Anion Gap BUN 9 (7.0-18.0) mg/dL Creatinine < 0.2 L (0.8-1.3) mg/dL Est Cr Clr Drug Dosing 321.95 mL/min Estimated GFR (MDRD) > 60.0 ml/min Glucose 559 H* (74-106) mg/dL POC Glucose (60-110) mg/dL Hemoglobin A1c (4.5-6.2) % Calcium 6.7 L (8.5-10.1) mg/dL Phosphorus (2.6-4.7) mg/dL Magnesium (1.8-2.4) mg/dL Total Bilirubin 3.2 H (0.2-1.0) mg/dL AST (15-37) IU/L ALT (14-63) IU/L Alkaline Phosphatase 84 (46-116) U/L Total Protein 7.8 (6.4-8.2) g/dL Albumin 3.8 (3.4-5.0) g/dL Globulin 4.0 (2.6-4.0) g/dL Albumin/Globulin Ratio 1.0 (0.9-1.6) Amylase (25-115) U/L Lipase 2520 H (73-393) U/L Urine Color YELLOW Urine Appearance HAZY Urine pH 5.5 (5.0-8.0) Ur Specific [place] >= 1.030 (1.001-1.035) Urine Protein 100 H (NEGATIVE) mg/dL Urine Glucose (UA) 500 H (NEGATIVE) mg/dL Urine Ketones >=80 (NEGATIVE) mg/dL Urine Occult Blood SMALL H (NEGATIVE) Urine Nitrite NEGATIVE (NEGATIVE) Urine Bilirubin SMALL H (NEGATIVE) Urine Urobilinogen 0.2 (<2.0) EU/dL Ur Leukocyte Esterase NEGATIVE (NEGATIVE) Urine RBC 0-2 (0-2/HPF) Urine WBC 0-1 (0-5/HPF) Ur Epithelial Cells RARE (NONE-FEW) Urine Bacteria FEW (NEGATIVE) Urine Mucus LIGHT (NONE-MOD) 08/08/18 08/08/18 08/08/18 Range/Units 01:36 01:43 02:58 WBC (4.0-11.0) K/uL RBC (4.50-5.90) M/uL Hgb (13.0-17.0) g/dL Hct (38.0-50.0) % MCV (80.0-98.0) fL MCH (27.0-32.0) pg MCHC (31.0-37.0) g/dL RDW Std Deviation (28.0-62.0) fl RDW Coeff of Raymond (11.0-15.0) % Plt Count (150-400) K/uL MPV (7.40-12.00) fL Add Manual Diff Neutrophils % (Manual) (48.0-80.0) % Band Neutrophils % % Lymphocytes % (Manual) (16.0-40.0) % Monocytes % (Manual) (0.0-15.0) % Nucleated RBC % /100WBC Absolute Seg Neuts (1.4-5.7) Band Neutrophils # Lymphocytes # (Manual) (0.6-2.4) Monocytes # (Manual) (0.0-0.8) Nucleated RBCs # K/uL ABG pH 7.124 L* (7.35-7.45) ABG pCO2 15 L (35-45) mmHG ABG pO2 121 H (75-100) mmHG ABG HCO3 5 L (22-26) mEq/L ABG Total CO2 ABG Base Excess (-2.0-2.0) Sodium (136-148) mmol/L Potassium (3.5-5.1) mmol/L Chloride (98-107) mmol/L Carbon Dioxide (21.0-32.0) mmol/L Anion Gap BUN (7.0-18.0) mg/dL Creatinine (0.8-1.3) mg/dL Est Cr Clr Drug Dosing mL/min Estimated GFR (MDRD) ml/min Glucose (74-106) mg/dL POC Glucose 205 H 197 H (60-110) mg/dL Hemoglobin A1c (4.5-6.2) % Calcium (8.5-10.1) mg/dL Phosphorus (2.6-4.7) mg/dL Magnesium (1.8-2.4) mg/dL Total Bilirubin (0.2-1.0) mg/dL AST (15-37) IU/L ALT (14-63) IU/L Alkaline Phosphatase (46-116) U/L Total Protein (6.4-8.2) g/dL Albumin (3.4-5.0) g/dL Globulin (2.6-4.0) g/dL Albumin/Globulin Ratio (0.9-1.6) Amylase (25-115) U/L Lipase (73-393) U/L Urine Color Urine Appearance Urine pH (5.0-8.0) Ur Specific [place] (1.001-1.035) Urine Protein (NEGATIVE) mg/dL Urine Glucose (UA) (NEGATIVE) mg/dL Urine Ketones (NEGATIVE) mg/dL Urine Occult Blood (NEGATIVE) Urine Nitrite (NEGATIVE) Urine Bilirubin (NEGATIVE) Urine Urobilinogen (<2.0) EU/dL Ur Leukocyte Esterase (NEGATIVE) Urine RBC (0-2/HPF) Urine WBC (0-5/HPF) Ur Epithelial Cells (NONE-FEW) Urine Bacteria (NEGATIVE) Urine Mucus (NONE-MOD) 08/08/18 08/08/18 08/08/18 Range/Units 03:58 04:15 04:45 WBC (4.0-11.0) K/uL RBC (4.50-5.90) M/uL Hgb (13.0-17.0) g/dL Hct (38.0-50.0) % MCV (80.0-98.0) fL MCH (27.0-32.0) pg MCHC (31.0-37.0) g/dL RDW Std Deviation (28.0-62.0) fl RDW Coeff of Raymond (11.0-15.0) % Plt Count (150-400) K/uL MPV (7.40-12.00) fL Add Manual Diff Neutrophils % (Manual) (48.0-80.0) % Band Neutrophils % % Lymphocytes % (Manual) (16.0-40.0) % Monocytes % (Manual) (0.0-15.0) % Nucleated RBC % /100WBC Absolute Seg Neuts (1.4-5.7) Band Neutrophils # Lymphocytes # (Manual) (0.6-2.4) Monocytes # (Manual) (0.0-0.8) Nucleated RBCs # K/uL ABG pH (7.35-7.45) ABG pCO2 (35-45) mmHG ABG pO2 (75-100) mmHG ABG HCO3 (22-26) mEq/L ABG Total CO2 ABG Base Excess (-2.0-2.0) Sodium 131 L (136-148) mmol/L Potassium 3.5 (3.5-5.1) mmol/L Chloride 98 (98-107) mmol/L Carbon Dioxide 8.0 L (21.0-32.0) mmol/L Anion Gap BUN 5 L (7.0-18.0) mg/dL Creatinine (0.8-1.3) mg/dL Est Cr Clr Drug Dosing 1000.68 mL/min Estimated GFR (MDRD) > 60.0 ml/min Glucose 369 H (74-106) mg/dL POC Glucose 173 H (60-110) mg/dL Hemoglobin A1c (4.5-6.2) % Calcium 5.8 L (8.5-10.1) mg/dL Phosphorus <0.5 L (2.6-4.7) mg/dL Magnesium 1.5 L (1.8-2.4) mg/dL Total Bilirubin (0.2-1.0) mg/dL AST (15-37) IU/L ALT (14-63) IU/L Alkaline Phosphatase (46-116) U/L Total Protein (6.4-8.2) g/dL Albumin (3.4-5.0) g/dL Globulin (2.6-4.0) g/dL Albumin/Globulin Ratio (0.9-1.6) Amylase 455 H (25-115) U/L Lipase 5778 H (73-393) U/L Urine Color Urine Appearance Urine pH (5.0-8.0) Ur Specific [place] (1.001-1.035) Urine Protein (NEGATIVE) mg/dL Urine Glucose (UA) (NEGATIVE) mg/dL Urine Ketones (NEGATIVE) mg/dL Urine Occult Blood (NEGATIVE) Urine Nitrite (NEGATIVE) Urine Bilirubin (NEGATIVE) Urine Urobilinogen (<2.0) EU/dL Ur Leukocyte Esterase (NEGATIVE) Urine RBC (0-2/HPF) Urine WBC (0-5/HPF) Ur Epithelial Cells (NONE-FEW) Urine Bacteria (NEGATIVE) Urine Mucus (NONE-MOD) 08/08/18 08/08/18 08/08/18 Range/Units 05:09 06:07 06:56 WBC (4.0-11.0) K/uL RBC (4.50-5.90) M/uL Hgb (13.0-17.0) g/dL Hct (38.0-50.0) % MCV (80.0-98.0) fL MCH (27.0-32.0) pg MCHC (31.0-37.0) g/dL RDW Std Deviation (28.0-62.0) fl RDW Coeff of Raymond (11.0-15.0) % Plt Count (150-400) K/uL MPV (7.40-12.00) fL Add Manual Diff Neutrophils % (Manual) (48.0-80.0) % Band Neutrophils % % Lymphocytes % (Manual) (16.0-40.0) % Monocytes % (Manual) (0.0-15.0) % Nucleated RBC % /100WBC Absolute Seg Neuts (1.4-5.7) Band Neutrophils # Lymphocytes # (Manual) (0.6-2.4) Monocytes # (Manual) (0.0-0.8) Nucleated RBCs # K/uL ABG pH (7.35-7.45) ABG pCO2 (35-45) mmHG ABG pO2 (75-100) mmHG ABG HCO3 (22-26) mEq/L ABG Total CO2 ABG Base Excess (-2.0-2.0) Sodium (136-148) mmol/L Potassium (3.5-5.1) mmol/L Chloride (98-107) mmol/L Carbon Dioxide (21.0-32.0) mmol/L Anion Gap BUN (7.0-18.0) mg/dL Creatinine (0.8-1.3) mg/dL Est Cr Clr Drug Dosing mL/min Estimated GFR (MDRD) ml/min Glucose (74-106) mg/dL POC Glucose 175 H 214 H 186 H (60-110) mg/dL Hemoglobin A1c (4.5-6.2) % Calcium (8.5-10.1) mg/dL Phosphorus (2.6-4.7) mg/dL Magnesium (1.8-2.4) mg/dL Total Bilirubin (0.2-1.0) mg/dL AST (15-37) IU/L ALT (14-63) IU/L Alkaline Phosphatase (46-116) U/L Total Protein (6.4-8.2) g/dL Albumin (3.4-5.0) g/dL Globulin (2.6-4.0) g/dL Albumin/Globulin Ratio (0.9-1.6) Amylase (25-115) U/L Lipase (73-393) U/L Urine Color Urine Appearance Urine pH (5.0-8.0) Ur Specific [place] (1.001-1.035) Urine Protein (NEGATIVE) mg/dL Urine Glucose (UA) (NEGATIVE) mg/dL Urine Ketones (NEGATIVE) mg/dL Urine Occult Blood (NEGATIVE) Urine Nitrite (NEGATIVE) Urine Bilirubin (NEGATIVE) Urine Urobilinogen (<2.0) EU/dL Ur Leukocyte Esterase (NEGATIVE) Urine RBC (0-2/HPF) Urine WBC (0-5/HPF) Ur Epithelial Cells (NONE-FEW) Urine Bacteria (NEGATIVE) Urine Mucus (NONE-MOD) 08/08/18 08/08/18 08/08/18 Range/Units 08:17 10:09 11:58 WBC (4.0-11.0) K/uL RBC (4.50-5.90) M/uL Hgb (13.0-17.0) g/dL Hct (38.0-50.0) % MCV (80.0-98.0) fL MCH (27.0-32.0) pg MCHC (31.0-37.0) g/dL RDW Std Deviation (28.0-62.0) fl RDW Coeff of Raymond (11.0-15.0) % Plt Count (150-400) K/uL MPV (7.40-12.00) fL Add Manual Diff Neutrophils % (Manual) (48.0-80.0) % Band Neutrophils % % Lymphocytes % (Manual) (16.0-40.0) % Monocytes % (Manual) (0.0-15.0) % Nucleated RBC % /100WBC Absolute Seg Neuts (1.4-5.7) Band Neutrophils # Lymphocytes # (Manual) (0.6-2.4) Monocytes # (Manual) (0.0-0.8) Nucleated RBCs # K/uL ABG pH (7.35-7.45) ABG pCO2 (35-45) mmHG ABG pO2 (75-100) mmHG ABG HCO3 (22-26) mEq/L ABG Total CO2 ABG Base Excess (-2.0-2.0) Sodium 121 L 130 L (136-148) mmol/L Potassium 3.4 L 4.2 (3.5-5.1) mmol/L Chloride 90 L 98 (98-107) mmol/L Carbon Dioxide 5.9 L 8.0 L (21.0-32.0) mmol/L Anion Gap 28.2 BUN 4 L (7.0-18.0) mg/dL Creatinine 0.7 L (0.8-1.3) mg/dL Est Cr Clr Drug Dosing 142.95 mL/min Estimated GFR (MDRD) > 60.0 ml/min Glucose 422 H (74-106) mg/dL POC Glucose 242 H (60-110) mg/dL Hemoglobin A1c (4.5-6.2) % Calcium 6.9 L (8.5-10.1) mg/dL Phosphorus (2.6-4.7) mg/dL Magnesium (1.8-2.4) mg/dL Total Bilirubin (0.2-1.0) mg/dL AST (15-37) IU/L ALT (14-63) IU/L Alkaline Phosphatase (46-116) U/L Total Protein (6.4-8.2) g/dL Albumin (3.4-5.0) g/dL Globulin (2.6-4.0) g/dL Albumin/Globulin Ratio (0.9-1.6) Amylase (25-115) U/L Lipase (73-393) U/L Urine Color Urine Appearance Urine pH (5.0-8.0) Ur Specific [place] (1.001-1.035) Urine Protein (NEGATIVE) mg/dL Urine Glucose (UA) (NEGATIVE) mg/dL Urine Ketones (NEGATIVE) mg/dL Urine Occult Blood (NEGATIVE) Urine Nitrite (NEGATIVE) Urine Bilirubin (NEGATIVE) Urine Urobilinogen (<2.0) EU/dL Ur Leukocyte Esterase (NEGATIVE) Urine RBC (0-2/HPF) Urine WBC (0-5/HPF) Ur Epithelial Cells (NONE-FEW) Urine Bacteria (NEGATIVE) Urine Mucus (NONE-MOD) 08/08/18 08/08/18 Range/Units 12:10 13:07 WBC (4.0-11.0) K/uL RBC (4.50-5.90) M/uL Hgb (13.0-17.0) g/dL Hct (38.0-50.0) % MCV (80.0-98.0) fL MCH (27.0-32.0) pg MCHC (31.0-37.0) g/dL RDW Std Deviation (28.0-62.0) fl RDW Coeff of Raymond (11.0-15.0) % Plt Count (150-400) K/uL MPV (7.40-12.00) fL Add Manual Diff Neutrophils % (Manual) (48.0-80.0) % Band Neutrophils % % Lymphocytes % (Manual) (16.0-40.0) % Monocytes % (Manual) (0.0-15.0) % Nucleated RBC % /100WBC Absolute Seg Neuts (1.4-5.7) Band Neutrophils # Lymphocytes # (Manual) (0.6-2.4) Monocytes # (Manual) (0.0-0.8) Nucleated RBCs # K/uL ABG pH (7.35-7.45) ABG pCO2 (35-45) mmHG ABG pO2 (75-100) mmHG ABG HCO3 (22-26) mEq/L ABG Total CO2 ABG Base Excess (-2.0-2.0) Sodium 128 L (136-148) mmol/L Potassium 4.5 (3.5-5.1) mmol/L Chloride 98 (98-107) mmol/L Carbon Dioxide 8.7 L (21.0-32.0) mmol/L Anion Gap BUN 4 L (7.0-18.0) mg/dL Creatinine 0.9 (0.8-1.3) mg/dL Est Cr Clr Drug Dosing 111.19 mL/min Estimated GFR (MDRD) > 60.0 ml/min Glucose 467 H (74-106) mg/dL POC Glucose 241 H (60-110) mg/dL Hemoglobin A1c (4.5-6.2) % Calcium 6.2 L (8.5-10.1) mg/dL Phosphorus (2.6-4.7) mg/dL Magnesium (1.8-2.4) mg/dL Total Bilirubin (0.2-1.0) mg/dL AST (15-37) IU/L ALT (14-63) IU/L Alkaline Phosphatase (46-116) U/L Total Protein (6.4-8.2) g/dL Albumin (3.4-5.0) g/dL Globulin (2.6-4.0) g/dL Albumin/Globulin Ratio (0.9-1.6) Amylase 1227 H (25-115) U/L Lipase 7252 H (73-393) U/L Urine Color Urine Appearance Urine pH (5.0-8.0) Ur Specific [place] (1.001-1.035) Urine Protein (NEGATIVE) mg/dL Urine Glucose (UA) (NEGATIVE) mg/dL Urine Ketones (NEGATIVE) mg/dL Urine Occult Blood (NEGATIVE) Urine Nitrite (NEGATIVE) Urine Bilirubin (NEGATIVE) Urine Urobilinogen (<2.0) EU/dL Ur Leukocyte Esterase (NEGATIVE) Urine RBC (0-2/HPF) Urine WBC (0-5/HPF) Ur Epithelial Cells (NONE-FEW) Urine Bacteria (NEGATIVE) Urine Mucus (NONE-MOD) Med Orders - Current: Current Medications Enoxaparin Sodium (Lovenox) 40 mg SUBCUT Q24H ROLO Last Admin: 08/08/18 05:23 Dose: 40 mg Folic Acid (Folic Acid) 1 mg PO DAILY ROLO Last Admin: 08/08/18 09:47 Dose: 1 mg Hydromorphone HCl (Dilaudid) 1 mg IVPUSH Q1H PRN PRN Reason: Pain Last Admin: 08/08/18 14:12 Dose: 1 mg Insulin Human Regular 100 unit (/ Sodium Chloride) 100 mls @ 1.5 mls/hr IV TITRATE ROLO; Protocol Last Titration: 08/08/18 13:16 Dose: 5 unit/hr, 5 mls/hr Potassium Chloride/Dextrose/Sod Cl (D5 1/2 Ns W/ 20 Meq/L Kcl) 1,000 mls @ 150 mls/hr IV ASDIRECTED ROOL Last Infusion: 08/08/18 12:08 Dose: Infused Multivitamins/Minerals 10 ml/ (Sodium Chloride) 1,010 mls @ 250 mls/hr IV DAILY ROLO Last Admin: 08/08/18 09:45 Dose: 250 mls/hr Potassium Chloride 20 meq/ (Premix) 50 mls @ 25 mls/hr IV ONETIME ONE Stop: 08/08/18 14:29 Last Admin: 08/08/18 12:08 Dose: Not Given Lorazepam (Ativan) 1 mg IVPUSH Q4H PRN PRN Reason: Anxiety Last Admin: 08/08/18 12:31 Dose: 1 mg Thiamine HCl (Vitamin B-1) 100 mg PO DAILY ROLO Last Admin: 08/08/18 09:47 Dose: 100 mg Discontinued Medications Hydromorphone HCl (Dilaudid) 1 mg IVPUSH ONETIME ONE Stop: 08/08/18 00:49 Last Admin: 08/08/18 00:58 Dose: 1 mg Hydromorphone HCl (Dilaudid) 0.5 mg IVPUSH Q4H PRN PRN Reason: Pain Last Admin: 08/08/18 04:47 Dose: 0.5 mg Hydromorphone HCl (Dilaudid) 0.5 mg IVPUSH Q2H PRN PRN Reason: Pain Last Admin: 08/08/18 09:52 Dose: 0.5 mg Sodium Chloride (Normal Saline) 1,000 mls @ 999 mls/hr IV .Bolus ONE Stop: 08/07/18 23:32 Last Admin: 08/07/18 22:47 Dose: 999 mls/hr Sodium Chloride (Normal Saline) 1,000 mls @ 999 mls/hr IV .Bolus ONE Stop: 08/08/18 02:03 Last Admin: 08/08/18 01:05 Dose: 999 mls/hr Insulin Human Regular 100 unit (/ Sodium Chloride) 100 mls @ 7 mls/hr IV TITRATE ROLO; Protocol Last Titration: 08/08/18 03:58 Dose: 1.5 unit/hr, 1.5 mls/hr Thiamine HCl 100 mg/ Sodium (Chloride) 101 mls @ 202 mls/hr IV ONETIME ONE Stop: 08/08/18 04:19 Last Admin: 08/08/18 04:57 Dose: 202 mls/hr Sodium Chloride (Normal Saline) 1,000 mls @ 125 mls/hr IV ASDIRECTED ROLO Last Admin: 08/08/18 03:08 Dose: 125 mls/hr Potassium Phosphate 30 mmole/ (Sodium Chloride) 510 mls @ 127.5 mls/hr IV NOW ONE Stop: 08/08/18 07:40 Last Admin: 08/08/18 08:29 Dose: Not Given Magnesium Sulfate 2 gm/ Premix 50 mls @ 50 mls/hr IV ONETIME ONE Stop: 08/08/18 12:29 Last Admin: 08/08/18 12:47 Dose: 50 mls/hr Potassium Phosphate 30 mmole/ (Sodium Chloride) 510 mls @ 127.5 mls/hr IV NOW ONE Stop: 08/08/18 12:14 Last Admin: 08/08/18 08:29 Dose: 127.5 mls/hr Sodium Chloride (Normal Saline) 1,000 mls @ 999 mls/hr IV .BOLUS ONE Stop: 08/08/18 14:15 Pantoprazole Sodium 80 mg/ (Sodium Chloride) 20 mls @ 240 mls/hr IV NOW STA Stop: 08/08/18 13:57 Last Admin: 08/08/18 13:58 Dose: 240 mls/hr Insulin Human Regular (Novolin R) 10 unit SUBCUT NOW STA; Protocol Stop: 08/08/18 00:50 Last Admin: 08/08/18 00:55 Dose: 10 unit Insulin Human Regular (Novolin R) 10 unit IVPUSH ONETIME ONE; Protocol Stop: 08/08/18 01:07 Last Admin: 08/08/18 01:10 Dose: 10 unit Ketorolac Tromethamine (Toradol) 30 mg IVPUSH ONETIME ONE Stop: 08/07/18 22:34 Last Admin: 08/07/18 22:48 Dose: 30 mg Multivitamins/Minerals (Infuvite Adult) 10 ml IV DAILY [facility] Ondansetron HCl (Zofran) 4 mg IVPUSH ONETIME ONE Stop: 08/07/18 22:33 Last Admin: 08/07/18 22:47 Dose: 4 mg - Exam Quality Assessment: Denies: Supplemental Oxygen General: Reports: Alert, Oriented, Moderate Distress HEENT: Reports: Pupils Equal, Pupils Reactive, EOMI. Denies: Mucous Membr. Moist/[place] (Dry) Neck: Reports: Supple, Trachea Midline Lungs: Reports: Clear to Auscultation, Normal Respiratory Effort Cardiovascular: Reports: Regular Rate, Tachycardia (140 on monitor) GI/Abdominal Exam: Soft, No Distention, Tender. No: Normal Bowel Sounds Back Exam: Reports: Normal Inspection, Full Range of Motion Extremities: Normal Inspection, No Pedal Edema Skin: Reports: Warm, Dry, Intact Neurological: Reports: No New Focal Deficit Psy/Mental Status: Reports: Alert, Normal Affect, Normal Mood
[2018-08-08 15:20] VITALS: BP 165/97
[2018-08-08] MEDS ORDERED: Pantoprazole 40 MG in Sodium Chloride 0.9% 10 ML IVPUSH SCH (21:00)
== END 2018-08-08 14:50 | DRG 438 ==
LOC: MW.ED 22:23 → MW.ICU 08-08 02:08 → OBSVTOIN 08-08 02:08
PROVIDERS: ADMIT Internal Medicine; ATTEND Internal Medicine
PROC: HZ2ZZZZ Detoxification Services for Substance Abuse Treatment (ICD-10-PCS; principal; 2018-08-08)
DX: K85.90 Acute pancreatitis without necrosis or infection, unspecified (principal); E10.10 Type 1 diabetes mellitus with ketoacidosis without coma; E86.0 Dehydration; E78.5 Hyperlipidemia, unspecified; Z79.4 Long term (current) use of insulin; Z87.891 Personal history of nicotine dependence
CPT/HCPCS: 36415; 36600; 74176; 74176-26; 76705; 76705-26; 80048; 80051; 80053; 80061; 81001; 82150; 82803; 82962; 83036; 83690; 83735; 84100; 85025; 87040; 87086; 96361; 96374; 96375; 99285-25; A4217; A9270-GY; C9113; J1170; J1650; J1815-GY; J1885; J2060; J2405; J3411; J3475; J3480; J7030; J7040; J7050

== ENCOUNTER 2023-04-26 11:37 | Emergency (ER) | payer BC, OTHER ==
[2023-04-26 12:06] VITALS: BP 172/92; PULSE 103
[2023-04-26] MEDS: Lidocaine 1% 5 ML VIAL INJECT STA (13:00)
[2023-04-26] MEDS: Lidocaine 1% 5 ML VIAL INJECT ONE (14:01)
== END 2023-04-26 14:50 | disposition home or self-care (01) ==
LOC: MW.ED 11:37
DX: L02.11 Cutaneous abscess of neck (principal); I10 Essential (primary) hypertension; E78.00 Pure hypercholesterolemia, unspecified; E11.9 Type 2 diabetes mellitus without complications; F17.210 Nicotine dependence, cigarettes, uncomplicated; Z79.4 Long term (current) use of insulin; Z79.899 Other long term (current) drug therapy
CPT/HCPCS: 10060; 87070; 87205; 99283; J3490

== ENCOUNTER 2023-05-12 06:36 | Day surgery (SDC) | payer BC, OTHER ==
[~2023-05-12 06:36] MED LIST: Sodium Chloride 0.9% 10 ML Syringe FLUSH PRN; Sodium Chloride 0.9% 2.5 ML Syringe FLUSH PRN; Sodium Chloride 0.9% 20 ML SDV IV PRN; ceFAZolin 2 GM in Sodium Chloride 0.9% 50 ML IV ONE
[2023-05-12] MEDS: Lactated Ringers 1,000 ML IV SCH (07:00)
[2023-05-12] MEDS ORDERED: Bupivacaine 0.5% 30 ML SDV ONE (07:12)
[2023-05-12] MEDS ORDERED: ceFAZolin 1 GM Vial ONE (07:12)
[2023-05-12] MEDS ORDERED: HYDROmorphone 1 MG/ML Syringe IVPUSH PRN (07:26)
[2023-05-12] MEDS ORDERED: Metoclopramide 10 MG/2 ML SDV IVPUSH PRN (07:26)
[2023-05-12] MEDS ORDERED: Ondansetron 4 MG/2 ML SDV IVPUSH PRN (07:26)
[2023-05-12] MEDS ORDERED: fentaNYL 50 MCG/ML SDV IVPUSH PRN (07:26)
[2023-05-12] MEDS ORDERED: Albuterol 0.083% 2.5 MG/3 ML Neb Soln NEB PRN (07:26)
[2023-05-12] MEDS ORDERED: Morphine 2 MG/ML SYRINGE IVPUSH PRN (07:26)
[2023-05-12] MEDS ORDERED: Naloxone 0.4 MG/ML SDV IVPUSH PRN (07:26)
[2023-05-12] MEDS ORDERED: droPERidol 5 MG/2 ML SDV IVPUSH PRN (07:26)
[2023-05-12] MEDS ORDERED: propofoL 50 ML ONE (07:40)
[2023-05-12] MEDS ORDERED: ceFAZolin 2 GM Vial ONE (08:12)
[2023-05-12] MEDS ORDERED: HYDROmorphone 2 MG/ML Syringe ONE ×2 (08:14→08:26)
[2023-05-12] MEDS ORDERED: Propofol 200 MG/20 ML SDV ONE (08:17)
[2023-05-12] MEDS ORDERED: Water For Injection, Sterile 20 ML ONE (08:54)
[2023-05-12 12:35] VITALS: BP 151/89; PULSE 69
== END 2023-05-12 09:40 | disposition home or self-care (01) ==
LOC: MW.SDS 06:36
PROVIDERS: ATTEND Surgery
DX: L02.11 Cutaneous abscess of neck (principal); L72.0 Epidermal cyst; I10 Essential (primary) hypertension; E11.9 Type 2 diabetes mellitus without complications; E78.00 Pure hypercholesterolemia, unspecified; Z79.4 Long term (current) use of insulin; Z79.899 Other long term (current) drug therapy
CPT/HCPCS: 10061; 82947; 87070; 87075; 87077; 87186; 87205; J0131; J0665; J0690; J1170; J2704; J7120; J3490